=== PATIENT | male | born 1955 | race American Indian/Alaskan Native ===

== ENCOUNTER 2023-09-07 13:37 | Inpatient (IN) | payer MEDICARE, SELFPAY ==
[2023-09-07] VITALS (13 sets, daily range): BP systolic 125–151; BP diastolic 81–98; PULSE 75–92; RESP 12–24; TEMP 36.2–36.5; O2SAT 97–100; BMI 24.9
--- NOTE | 2023-09-07 | EST_ITS ---
Patient Info Name: Merritt Messina Age: 68 years : 1955 Gender: Male Ht: 68 in Wt: 164 lbs BSA: 1.90 m2 HR: 75 bpm BP: 159 / 95 mmHg Heart Rhythm: Sinus Rhythm Exam Date: 09/08/2023 11:48 AM Exam Location: Echo Lab Patient Status: Inpatient Admit Date: 09/07/2023 Staff Ordering Physician: Valdez Michel MD Attending Provider: Valdez Michel MD Exercise Technologist: Irene Newman CT Exercise Physician: Dakota Arreaga MD Exam Type: CA stress test treadmill w NM Study Info Indications R07.89 - Other chest pain A nuclear stress test was performed. Summary 1. No abnormal ST/T wave changes diagnostic of ischemia with exercise. 2. Occasional PVCs. 3. Exercise capacity fair to good at 6-10 METS. 4. Please correlate with nuclear medicine images, reported separately. 5. Stress test supervised by and interpreted by Dakota Arreaga MD. Protocol: Al Stress ECG Details Stage: REST Duration (min): 2 min : 52 sec Speed (mph): 0.0 Grade (%): 0 HR (bpm): 75 SBP (mmHg): 156 DBP (mmHg): 95 METS: --- Stage: REST Duration (min): 11 min : 10 sec Speed (mph): 0.0 Grade (%): 0 HR (bpm): 94 SBP (mmHg): 156 DBP (mmHg): 95 METS: --- Stage: STAGE 1 Duration (min): 1 min : 0 sec Speed (mph): 1.7 Grade (%): 10 HR (bpm): 110 SBP (mmHg): 156 DBP (mmHg): 95 METS: --- Stage: STAGE 1 Duration (min): 2 min : 0 sec Speed (mph): 1.7 Grade (%): 10 HR (bpm): 116 SBP (mmHg): 156 DBP (mmHg): 95 METS: --- Stage: STAGE 1 Duration (min): 3 min : 0 sec Speed (mph): 1.7 Grade (%): 10 HR (bpm): 120 SBP (mmHg): 181 DBP (mmHg): 95 METS: --- Stage: STAGE 2 Duration (min): 1 min : 0 sec Speed (mph): 2.5 Grade (%): 12 HR (bpm): 126 SBP (mmHg): 181 DBP (mmHg): 95 METS: --- Stage: STAGE 2 Duration (min): 2 min : 0 sec Speed (mph): 2.5 Grade (%): 12 HR (bpm): 134 SBP (mmHg): 149 DBP (mmHg): 90 METS: --- Stage: STAGE 2 Duration (min): 2 min : 25 sec Speed (mph): 0.0 Grade (%): 0 HR (bpm): 135 SBP (mmHg): 149 DBP (mmHg): 90 METS: --- Stage: RECOVERY Duration (min): 0 min : 34 sec Speed (mph): 0.0 Grade (%): 0 HR (bpm): 120 SBP (mmHg): 149 DBP (mmHg): 90 METS: --- Stage: RECOVERY Duration (min): 1 min : 34 sec Speed (mph): 0.0 Grade (%): 0 HR (bpm): 126 SBP (mmHg): 149 DBP (mmHg): 90 METS: --- Stage: RECOVERY Duration (min): 2 min : 34 sec Speed (mph): 0.0 Grade (%): 0 HR (bpm): 108 SBP (mmHg): 156 DBP (mmHg): 116 METS: --- Stage: RECOVERY Duration (min): 2 min : 56 sec Speed (mph): 0.0 Grade (%): 0 HR (bpm): 104 SBP (mmHg): 156 DBP (mmHg): 116 METS: --- Rest HR: 94 bpm Peak HR: 134 bpm Rest Sys BP: 156 mmHg Peak Sys BP: 181 mmHg Max Pred HR: 150 bpm % Max Pred HR: 89 % Target HR: 128 bpm Max RPP: 24,254 bpm*mmHg Davis Score: -[address] Seg Deviation: 3 mm Total Ti
--- NOTE | ~2023-09-07 | NM_ITS ---
EXAMINATION: NM stress w perf spect multi DATE: 09/08/2023 13:23 INDICATION: Acute coronary syndrome. TECHNIQUE: Rest images were obtained following intravenous administration of 10.4 mCi Tc99m tetrofosm in (CastTV). The patient performed an exercise activity. At peak exercise, 33 mCi Tc99m tetrofosmin (Myoview) was administered intravenously, and supine and prone stress images were obtained. Data was reconstructed into short axis and horizontal and vertical long axis SPECT images. Gated SPECT images were also obtained. COMPARISON: None. FINDINGS: There is a moderate-sized, mild, fixed perfusion defect involving mid to basal inferolatera l and basal inferior segments of left ventricle, consistent with infarct. No reversible component to suggest ischemia.. There is no segmental wall motion abnormality. Left ventricular ejection fractio n measures 60%. IMPRESSION: 1. Moderate-sized area of mild infarct involving mid to basal inferolateral and basal inferior segmen ts of left ventricle. 2. Normal left ventricular ejection fraction measuring 60%. Reviewed, dictated and finalized at location A. IMPRESSION: 1. Moderate-sized area of mild infarct involving mid to basal inferolateral and basal inferior segments of left ventricle. 2. Normal left ventricular ejection fraction measuring 60%.
--- NOTE | ~2023-09-07 | XR_ITS ---
EXAMINATION: XR chest 2V 09/07/2023 14:20 INDICATION: Chest tightness and weakness PROCEDURE: 2 view chest COMPARISON: No prior studies for comparison. FINDINGS: The lungs are clear. The cardiomediastinal silhouette is within normal limits. There are no pleural effusions. There is no pneumothorax suspected. There are degenerative changes of the lef t shoulder with probable chronic acromioclavicular subluxation. IMPRESSION: 1: NO ACUTE CARDIOPULMONARY DISEASE. Reviewed, dictated and finalized at location A.
[2023-09-07 14:15] LABS: Basophils Percent Auto 0.7 % (0.2-1.2); Eosinophils Absolute Auto 0.2 K/mm3 (0-0.3); Eosinophils Percent Auto 3.7 % (0-4.4); Hematocrit 44.3 % (42.0-52.0); Hemoglobin 14.6 g/dL (14.0-18.0); Immature Granulocyte Absolute 0.01 K/mm3 (0.00-0.031); Immature Granulocyte Percent A 0.2 % (0-0.5); Lymphocytes Absolute Auto 1.27 K/mm3 (0.9-3.2); Lymphocytes Percent Auto 27.8 % (18.3-44.2); Mean Corpuscular Hemoglobin 28.9 pg (26-34); Mean Corpuscular Volume 87.5 fl (80-100); Mean Platelet Volume 10.1 fl (7.4-10.4); Monocytes Absolute Auto 0.8 K/mm3 (0.1-0.6); Monocytes Percent Auto 16.6 % (2.6-8.5); Neutrophils Absolute Auto 2.3 K/mm3 (1.3-6.7); Platelet Count Result 248 k/mm3 (150-375); Red Blood Count 5.06 M/mm3 (4.6-6.20); White Blood Count 4.6 K/mm3 (4.5-10.0)
[2023-09-07 14:21] LABS: Appearance Urine Clear (Clear); Bacteria Urine None Seen /hpf; Bilirubin Urine Negative (Negative); Blood Urine Negative (Negative); Color Urine Dark Yellow (Yellow); Glucose Urine UA Negative (Negative); Ketones Urine Negative (Negative); Leukocyte Esterase Ur Negative LEU/UL (Negative); Nitrate Urine Negative (Negative); Non Pathogenic Casts 0-2; Protein Urine 1+ mg/dL (Negative); RBC Urine 0-2 /hpf (0-2); Specific Grav Ur 1.016 (1.001-1.035); Squamous Epithelial Cell Urine None Seen /hpf (Few); WBC Urine 0-5 /hpf (0-3); pH Urine 7.5 (5.0-9.0)
[2023-09-07 14:21] LABS: Alanine Aminotransferase 25 U/L (6-50); Albumin Level 4.7 g/dL (3.5-5.1); Alkaline Phosphatase 53 U/L (38-126); Anion Gap 10 mmol/L (4-12); Aspartate Amino Transferase 31 U/L (17-59); Bilirubin,Total 0.7 mg/dL (0.2-1.3); Blood Urea Nitrogen 13 mg/dL (9-20); Calcium 9.4 mg/dL (8.4-10.2); Carbon Dioxide 27 mmol/L (22-30); Chloride 103 mmol/L (98-107); Estimated CRCL calculation 54 ml/min; Estimated Glomerular Filt Rate > 60; Glucose 109 mg/dL (65-110); Potassium 3.9 mmol/L (3.4-5.0); Sodium 140 mmol/L (137-145)
[2023-09-07 14:35] LABS: Add Urine Microscopic? YES
--- NOTE | 2023-09-07 16:11 | ED.GENADULT ---
HPI - General Adult General Chief complaint: Weakness Stated complaint: weakness Time Seen by Provider: 09/07/23 14:56 History of Present Illness HPI narrative: this is a 68-year-old male presenting ED with chief complaint of chest pain shortness of breath. Over the last 2 weeks patient says he has been having intermittent chest pressure in the center of his chest radiates to both arms but more so to the left. He can last anywhere from minutes to hours before resolving. Is not associated with exertion diaphoresis vomiting. Patient did have a stent placed in 2002 in [place]. He has not followed with a community relations coordinator since then. Patient is denying fever chills productive cough abdominal pain lower extremity edema. Related Data Allergies Allergy/AdvReac Type Severity Reaction Status Date / Time No Known Allergies Allergy Verified 09/07/23 17:14 [facility] Past Medical History Medical History CAD (coronary artery disease) Diabetes HTN (hypertension) Exam Narrative: APPEARANCE: No apparent distress. Head: atraumatic. EYES: EOMI, NOSE: Atraumatic NECK: Trachea midline RESPIRATORY: No increased rate of breathing, CT be CARDIOVASCULAR: RRR, no peripheral edema ABDOMINAL: Non-distended soft nontender MUSCULOSKELETAl: No obvious deformities NEURO: Alert. Moving 4/4 extremities SKIN:: Warm, dry. Normal color PSYCHIATRIC: Normal affect Course Vital Signs Vital signs: Vital Signs Temperature 97.1 F L 09/07/23 13:41 Pulse Rate 87 09/07/23 13:41 Respiratory Rate 20 09/07/23 13:41 Blood Pressure 143/85 H 09/07/23 13:41 Pulse Oximetry 100 09/07/23 13:41 Oxygen Delivery Room Air 09/07/23 13:41 Temperature 97.1 F L 09/07/23 13:41 Pulse Rate 92 09/07/23 19:01 Respiratory Rate 20 09/07/23 19:01 Blood Pressure 136/90 09/07/23 19:01 Pulse Oximetry 100 09/07/23 19:01 Oxygen Delivery Room Air 09/07/23 13:41 Medical Decision Making [facility] Narrative Medical decision making narrative: -Course: 68-year-old history of coronary artery disease presenting with intermittent chest pain over the last 2 weeks. Troponin negative x2. EKG w/o ischemic changes. Patient will be admitted the hospital for evaluation of unstable angina. Patient started on Lovenox and given aspirin. -DDX includes but is not limited to: Unstable angina, angina, NSTEMI, chest wall pain pneumonia, pneumothorax -Co-morbidities complicating care: CAD, hypertension, diabetes, HL -Independent interpretation of studies: Troponins undetectable x2. BNP 36 CBC metabolic panel unremarkable viral swabs negative chest x-ray on Independent EKG interpretation: Rhythm [sinus], Rate [77], [place] -[normal], [place] -[normal], QRS [narrow], QTC [normal], T waves -[negative for concerning inversions], ST Segments - [Negative for concerning elevations] Final interpretations: [Normal Sinus Rhythm] -Discussion of Management/Consultants:[place] - Hospitalist -Interventions: Lovenox, aspirin -Shared decision making / Disposition: admitted. Vital Signs Vital Signs: Vital Signs Temperature 97.1 F L 09/07/23 13:41 Pulse Rate 87 09/07/23 13:41 Respiratory Rate 20 09/07/23 13:41 Blood Pressure 143/85 H 09/07/23 13:41 Pulse Oximetry 100 09/07/23 13:41 Oxygen Delivery Room Air 09/07/23 13:41 Temperature 97.1 F L 09/07/23 13:41 Pulse Rate 92 09/07/23 19:01 Respiratory Rate 20 09/07/23 19:01 Blood Pressure 136/90 09/07/23 19:01 Pulse Oximetry 100 09/07/23 19:01 Oxygen Delivery Room Air 09/07/23 13:41 Lab Data 09/07/23 13:53 09/07/23 13:55 Labs: Lab Results 09/07/23 09/07/23 09/07/23 Range/Units 13:52 13:53 13:55 WBC 4.6 (4.5-10.0) K/mm3 RBC 5.06 (4.6-6.20) M/mm3 Hgb 14.6 (14.0-18.0) g/dL Hct 44.3 (42.0-52.0) % MCV 87.5 (80-100) fl MCH 28.9 (26-34) pg MCHC 33.0 (32-36)
[2023-09-07 16:19] LABS: NT Pro B Type Natriuretic Pept 36 pg/mL (19.9-100); Troponin I < 0.012 ng/mL (0.000-0.034)
[2023-09-07] MEDS: SODIUM CHLORIDE 0.9% IV 2,500 ML 999 ML IV CONT (17:00)
[2023-09-07 17:29] LABS: Influenza A QL RT-PCR Negative (Negative); Influenza B QL RT-PCR Negative (Negative); RSV RNA, RT-PCR Negative (Negative); SARS-CoV-2 RNA PCR Negative (Negative)
[2023-09-07 18:12] LABS: Troponin I < 0.012 ng/mL (0.000-0.034)
[2023-09-07] MEDS: ASPIRIN 81 MG CHEWABLE TABLET 324 MG PO (21:11)
[2023-09-07] MEDS: ENOXAPARIN 80 MG/0.8 ML SYRINGE 75 MG SUB-Q (21:11)
--- NOTE | 2023-09-07 21:14 | PM.IMHP ---
H&P: HPI History of Present Illness Date/Time: 09/07/23 21:14 Chief Complaint: acute chest pain Narrative: patient is a 68-year-old presents mainly history of diabetes, hypertension, hyperlipidemia comes to the hospital complaining of chest pain. Patient has had history of coronary disease in 2002 where he had stent placements in [place] does follow a primary care physician here in [place]. Patient states he started having some chest pain and shortness of breath this morning has not got better after his blood work has been negative he denies any abdominal pain hematemesis hemoptysis no heartburn no history of any abdominal discomfort no history of any COPD no history of any infection in the past no history of recent travel chest pain he rates as 4/10 radiated to left shoulder the left arm. At the time of examination patient was pain-free no lower extremity edema. Had a 2D echo done but does not have the results PMFSH Past Medical History Medical History CAD (coronary artery disease) Diabetes HTN (hypertension) Meds Home Medications and Allergies Allergies Allergy/AdvReac Type Severity Reaction Status Date / Time No Known Allergies Allergy Verified 09/07/23 17:14 Vital Signs Vital Signs - 24 hr 09/07/23 13:41 09/07/23 14:59 09/07/23 15:01 Temperature 36.2 C L Pulse Rate 87 75 75 Respiratory Rate 20 24 H 16 Blood Pressure 143/85 H 146/95 H 139/87 Pulse Oximetry 100 99 100 Oxygen Delivery Room Air 09/07/23 15:16 09/07/23 16:01 09/07/23 17:14 Temperature Pulse Rate 89 77 78 Respiratory Rate 12 24 H 18 Blood Pressure 128/82 134/90 140/90 Pulse Oximetry 100 99 100 Oxygen Delivery 09/07/23 17:45 09/07/23 18:19 09/07/23 19:01 Temperature Pulse Rate 89 92 92 Respiratory Rate 20 19 20 Blood Pressure 151/97 H 150/90 H 136/90 Pulse Oximetry 100 100 100 Oxygen Delivery 09/07/23 21:07 Temperature Pulse Rate 87 Respiratory Rate 15 Blood Pressure 151/98 H Pulse Oximetry 100 Oxygen Delivery Exam Narrative: GENERAL: Well appearing, no acute distress. HEAD: Normocephalic, atraumatic. NECK: Supple. No adenopathy, no masses. RESPIRATORY: respirations nonlabored. , no rales, wheezing. CARDIOVASCULAR: Regular rate and rhythm without murmurs, . Peripheral pulses 2+ and equal bilaterally. ABDOMINAL: Soft, nontender, nondistended, no hepatosplenomegaly. Normoactive BS. MUSCULOSKELETAL: no Epigastric and no hypochondrial tenderness SKIN: Warm, dry, NEURO: A&O X3. Moves all extremities H&P: Results Labs Labs: Short CBC 09/07/23 Range/Units 13:53 WBC 4.6 (4.5-10.0) K/mm3 Hgb 14.6 (14.0-18.0) g/dL Hct 44.3 (42.0-52.0) % Plt Count 248 (150-375) k/mm3 BMP 09/07/23 13:55 Sodium 140 Potassium 3.9 Chloride 103 Carbon Dioxide 27 BUN 13 Creatinine 1.10 Glucose 109 Calcium 9.4 Cardiac Enzymes 09/07/23 09/07/23 Range/Units 13:52 16:57 Troponin I < 0.012 < 0.012 (0.000-0.034) ng/mL Liver Function 09/07/23 Range/Units 13:55 Total Bilirubin 0.7 (0.2-1.3) mg/dL AST 31 (17-59) U/L ALT 25 (6-50) U/L Alkaline Phosphatase 53 (38-126) U/L Albumin 4.7 (3.5-5.1) g/dL Urine 09/07/23 Range/Units 14:05 Urine Color Dark yellow (Yellow) Urine Appearance Clear (Clear) Urine pH 7.5 (5.0-9.0) Ur Specific [place] 1.016 (1.001-1.035) Urine Protein 1+ H (Negative) mg/dL Urine Glucose (UA) Negative (Negative) mg/dL Assessment and Plan Assessment and plan (1) Chest pain: Code(s): R07.9 - Chest pain, unspecified Status: Acute (2) Diabetes: Code(s): E11.9 - Type 2 diabetes mellitus without complications Status: Acute (3) HTN (hypertension): Code(s): I10 - Essential (primary) hypertension Status: Acute (4) CAD (coronary artery disease): Code(s): I25.10 - Atheroscleroti
--- NOTE | 2023-09-07 21:38 | ADMGEN ---
This patient, Merritt Messina, was admitted to 2 Medical Room 243-01. Patient/family oriented to hospital policies and general routines including ID bracelet, bed and alarms, visiting hours, pain management, procedures, bathroom and other care routines, personal items, smoking policy, room service/diet, and visiting hours. Information on how to activate the Rapid Response Team has been discussed. Patient/Family are encouraged to report perceived risks to care and to ask questions if they do not understand what they are told or what they should do. Report received from RODY Moura in ED.
[2023-09-07 22:17] LABS: Cholesterol 195 mg/dL (0-200); HDL Direct 57 mg/dL; Triglycerides 201 mg/dL (<150)
[2023-09-07 22:18] LABS: Alanine Aminotransferase 25 U/L (6-50); Albumin Level 4.7 g/dL (3.5-5.1); Alkaline Phosphatase 55 U/L (38-126); Anion Gap 9 mmol/L (4-12); Aspartate Amino Transferase 33 U/L (17-59); Bilirubin,Total 0.6 mg/dL (0.2-1.3); Blood Urea Nitrogen 10 mg/dL (9-20); Carbon Dioxide 24 mmol/L (22-30); Chloride 107 mmol/L (98-107); Estimated CRCL calculation 65 ml/min; Estimated Glomerular Filt Rate > 60; Glucose 139 mg/dL (65-110); Potassium 3.3 mmol/L (3.4-5.0); Sodium 140 mmol/L (137-145)
[2023-09-07 22:21] LABS: Hemoglobin A1C 6.4 % (<5.7)
[2023-09-07 22:24] LABS: Basophils Percent Auto 0.6 % (0.2-1.2); Eosinophils Absolute Auto 0.2 K/mm3 (0-0.3); Eosinophils Percent Auto 3.4 % (0-4.4); Hematocrit 45.1 % (42.0-52.0); Hemoglobin 15.1 g/dL (14.0-18.0); Immature Granulocyte Absolute 0.01 K/mm3 (0.00-0.031); Immature Granulocyte Percent A 0.2 % (0-0.5); Lymphocytes Absolute Auto 1.27 K/mm3 (0.9-3.2); Lymphocytes Percent Auto 26.9 % (18.3-44.2); Mean Corpuscular HGB Conc 33.5 g/dl (32-36); Mean Corpuscular Hemoglobin 29.3 pg (26-34); Mean Corpuscular Volume 87.4 fl (80-100); Mean Platelet Volume 10.2 fl (7.4-10.4); Monocytes Absolute Auto 0.6 K/mm3 (0.1-0.6); Monocytes Percent Auto 12.3 % (2.6-8.5); Neutrophils Absolute Auto 2.7 K/mm3 (1.3-6.7); Neutrophils Percent Auto 56.6 % (45.5-73.1); Platelet Count Result 261 k/mm3 (150-375); Red Blood Count 5.16 M/mm3 (4.6-6.20); Red Cell Distribution Width 14.1 % (11.5-14.5); White Blood Count 4.7 K/mm3 (4.5-10.0)
[2023-09-07 22:27] LABS: LDL Cholesterol Direct 117 mg/dL
[2023-09-07 22:29] LABS: Troponin I < 0.012 ng/mL (0.000-0.034)
[2023-09-08] VITALS: PULSE 81
--- NOTE | 2023-09-08 | ECG_ITS ---
SEE SCANNED COPY FOR CONFIRMED REPORT MTDD
[2023-09-08 04:00] VITALS: BP 140/89; PULSE 77; PULSE 79; RESP 18; TEMP 36.6; O2SAT 98
[2023-09-08 07:10] VITALS: BP 152/94; PULSE 78; RESP 24; TEMP 36.8; O2SAT 98
--- NOTE | 2023-09-08 07:42 | PM.IMPN ---
Progress Note: A&P Assessment and Plan (1) Chest pain: Code(s): R07.9 - Chest pain, unspecified Status: Acute Assessment and Plan: -patient's symptoms are typical chest pain with worse on exertion, concerning for ACS - normal troponins -EKG without any acute findings -cardiology consulted a nuclear stress test completed today, 09/07 -prn Nitroglycerin, oxygen, morphine, aspirin -checking lipid panel and hemoglobin A1c -IV fluids: Continue maintenance normal saline for now (2) Diabetes: Code(s): E11.9 - Type 2 diabetes mellitus without complications Status: Acute Assessment and Plan: HBA1c ( goal <7.0%) , Renal functions, Liver panel every 3 months Optimize TRACY-inhibitor and statin - continue sliding scale insulin patient currently on metformin 500 mg twice daily Routine glucose monitoring Watch for Hypoglycemia- hypoglycemia protocol BMI goal < 25 Yearly eye exam and foot exam Yearly check for urine microalbuminuria 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-up with PCP and electrical engineering teacher (3) HTN (hypertension): Code(s): I10 - Essential (primary) hypertension Status: Acute Assessment and Plan: resume amlodipine-benazepril (4) CAD (coronary artery disease): Code(s): I25.10 - Atherosclerotic heart disease of [place] coronary artery without angina pectoris Status: Acute Assessment and Plan: resume home meds- statin, asa Plan DVT LOVENOX PERIPHERAL IV FULL CODE Time Spent With Patient Time with patient: 15 - 25 minutes Subjective Date/time seen: 09/08/23 07:42 Interval history: 68-year-old, history of diabetes, hypertension, hyperlipidemia comes to the hospital complaining of chest pain.? Patient has had history of coronary disease in 2003 where he had stent placements in [place] does follow a primary care physician here in [place].? Patient states he started having some chest pain and shortness of breath yesterday morning has not got better. He denies any abdominal pain hematemesis hemoptysis no heartburn no history of any abdominal discomfort no history of any COPD no history of any infection in the past no history of recent travel chest pain he rated as 4/10 radiated to left shoulder the left arm.? 09/07- pt is seen and examined today- he just came back from getting a Stress test. Eating lunch now- denies chest pain, SOB. Wants to establish with DR Dakota Arreaga upon discharge Review of Systems Constitutional: Constitutional: Denies body ache(s) and Denies chills Eyes: Eyes: Denies blurry vision ENT: Reports Normal hearing present Cardiovascular: Cardiovascular: Denies chest pain, Denies diaphoresis, Denies pedal edema and Denies leg edema Respiratory: Respiratory: Denies chest congestion and Denies cough Gastrointestinal: Gastrointestinal: Denies abdominal pain, Denies melena, Denies constipation and Denies heartburn Genitourinary: Genitourinary: Denies hematuria and Denies dysuria Musculoskeletal: Musculoskeletal: Denies back pain Psychiatric: Psychiatric: Denies anxiety Exam Narrative: GENERAL: Well appearing, no acute distress. HEAD: Normocephalic, atraumatic. NECK: Supple. No adenopathy, no masses. RESPIRATORY: respirations nonlabored. , no rales, wheezing. CARDIOVASCULAR: Regular rate and rhythm without murmurs, Peripheral pulses 2+ and equal bilaterally. ABDOMINAL: Soft, nontender, nondistended, no hepatosplenomegaly. Normoactive BS. MUSCULOSKELETAL: no Epigastric and no hypochondrial tenderness SKIN: Warm, dry, NEURO: A&O X3. Moves all extremities Const: General: comfortable Resp: Other: faint wheezes noted to rt side Cardio: Rate: not bradycardic and not tachycardic Skin: General skin exam: rashes and/or lesions noted Neuro: General: deep tendon reflexes 2+ bilaterally Speech: normal speech Extrem: General: normal exam except as noted Psych: Affect: normal affect Objective Data Vital Signs Jaimee
[2023-09-08 07:45] LABS: Glucose Point of Care 138 mg/dl (65-105)
[2023-09-08 08:00] VITALS: PULSE 71; O2SAT 96
[2023-09-08 08:20] VITALS: BP 146/85; PULSE 69; RESP 24; TEMP 36.6; O2SAT 99
[2023-09-08] MEDS: ENOXAPARIN 80 MG/0.8 ML SYRINGE 75 MG SUB-Q (09:50)
[2023-09-08] MEDS: ATORVASTATIN 40 MG TABLET PO (09:50)
[2023-09-08] MEDS: ASPIRIN 81 MG CHEWABLE TABLET PO (09:50)
[2023-09-08] MEDS: PANTOPRAZOLE 40 MG TABLET PO (10:15)
--- NOTE | 2023-09-08 11:11 | PC.NURSE ---
To nuclear med per wheelchair
--- NOTE | 2023-09-08 12:12 | PM.CNCAR ---
Assessment and Plan Assessment and plan (1) Chest pain: Code(s): R07.9 - Chest pain, unspecified Status: Acute Assessment and Plan: Troponins are negative. EKG without ischemic changes. Treadmill nuclear stress test ordered by Hospitalist. Agree with stress testing. Further recommendations and plan pending results of stress test. (2) CAD (coronary artery disease): Code(s): I25.10 - Atherosclerotic heart disease of [place] coronary artery without angina pectoris Status: Acute Assessment and Plan: Continue ASA, statin. On Rosuvastatin 5mg at home, will increase to 40mg for high intensity dose. (3) HTN (hypertension): Code(s): I10 - Essential (primary) hypertension Status: Acute Assessment and Plan: Stable. Continue home Amlodipine-Benazepril. (4) Diabetes: Code(s): E11.9 - Type 2 diabetes mellitus without complications Status: Acute Assessment and Plan: Hgb A1c is 6.4. Management as per primary team. (5) Hyperlipidemia: Code(s): E78.5 - Hyperlipidemia, unspecified Status: Acute Assessment and Plan: LDL is 117. On Rosuvastatin 5mg at home, will increase to 40mg for high intensity dose. History of Present Illness History of Present Illness Consult date/time: 09/08/23 12:12 Requesting physician: Ketan Tiwari MD Consult reason: chest pain Reason For Visit: Chest pain Narrative: We are consulted for chest pain. This is a 68 year old male with coronary artery disease s/p stent in 2002 in [facility], hypertension, hyperlipidemia, type 2 diabetes mellitus who presented with chest pain. Has been having substernal chest pain with radiation to the arms that occurs for a few seconds to a few minutes. Occurs randomly, not associated with activity, and has occurred at rest. Currently chest pain free. Troponins are negative x 3. CXR negative. EKG with sinus rhythm with nonspecific STTW abnormality. No prior EKG available for comparison. Does not have an outpatient [facility]. Former smoker - quit in the 80s. Review of Systems Review of Systems: All systems reviewed & are unremarkable except as noted in HPI and below (HPI) [facility] Past Medical History Medical History CAD (coronary artery disease) Diabetes HTN (hypertension) Family History Family History Sibling Heart disease Mother Heart disease Social History Social History Smoking status: Former smoker Tobacco type: cigarettes Alcohol intake: current Drinks per week: 14 Substance use: never Substance use type: does not use Do You Feel Safe in your Home?: Yes Lack of Transportation: No Lack of Food: Never True Current Housing: I Have Housing Concerned About Future Housing: No Difficulty Paying Gas/Electric Bills: No Difficulty Paying for Meds: No Currently Unemployed: No Education: Master's Degree or Higher Difficulty w/ Childcare or Family Care: No Spiritual care concerns: No Meds Home Medications and Allergies Home Medications Medication Instructions Recorded Confirmed Type amlodipine 10 mg-benazepril 20 mg 1 cap PO DAILY 09/07/23 09/07/23 History capsule aspirin 81 mg chewable tablet 81 mg PO DAILY 09/07/23 09/07/23 History ergocalciferol (vitamin D2) 1,250 1,250 mcg PO WEEKLY 09/07/23 09/07/23 History mcg (50,000 unit) capsule metformin 500 mg tablet 500 mg PO BID 09/07/23 09/07/23 History rosuvastatin 5 mg tablet 5 mg PO DAILY 09/07/23 09/07/23 History Allergies Allergy/AdvReac Type Severity Reaction Status Date / Time No Known Allergies Allergy Verified 09/07/23 17:14 Vital Signs Vital Signs - 24 hr 09/07/23 13:41 09/07/23 14:59 09/07/23 15:01 Temperature 36.2 C L Pulse Rate 87 75 75 Respiratory Rate 20 24 H 16 Blood Pressure 143/85 H 146/95 H
--- NOTE | 2023-09-08 12:46 | PC.NURSE ---
Return from Radiology per wheelchair
[2023-09-08 12:53] VITALS: BP 134/84; PULSE 80
[2023-09-08] MEDS: amLODIPine BESYLATE 5 MG TABLET 10 MG PO (12:54)
[2023-09-08] MEDS: lisinopriL 20 MG TABLET PO (12:54)
[2023-09-08 13:20] LABS: Glucose Point of Care 137 mg/dl (65-105)
--- NOTE | 2023-09-08 14:17 | PM.DS ---
DS: Admitting Diagnosis Discharge Date 09/07 Admitting Diagnosis chets pain DS: Discharge Diagnosis Discharge Diagnosis (1) Chest pain: Code(s): R07.9 - Chest pain, unspecified Status: Acute Assessment and Plan: -patient's symptoms are typical chest pain with worse on exertion, concerning for ACS - normal troponins -EKG without any acute findings -cardiology consulted a nuclear stress test completed today, 09/07 -prn Nitroglycerin, oxygen, morphine, aspirin -checking lipid panel and hemoglobin A1c (2) Diabetes: Code(s): E11.9 - Type 2 diabetes mellitus without complications Status: Acute Assessment and Plan: HBA1c ( goal <7.0%) , Renal functions, Liver panel every 3 months Optimize TRACY-inhibitor and statin - continue sliding scale insulin patient currently on metformin 500 mg twice daily Routine glucose monitoring Watch for Hypoglycemia- hypoglycemia protocol BMI goal < 25 Yearly eye exam and foot exam Yearly check for urine microalbuminuria 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-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 Has been having substernal chest pain with radiation to the arms that occurs for a few seconds to a few minutes. Occurs randomly, not associated with activity, and has occurred at rest. Currently chest pain free. Troponins are negative x 3. CXR negative. EKG completed. No prior EKG available for comparison. 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 Former smoker - quit in the 80s. MPI shows moderate-sized area of mild infarct involving the mid-basal inferolateral and basal inferior segments. No reversible component to suggest ischemia. No segmental wall motion abnormality. LVEF normal at 60%. Discussed results with the patient and options of cardiac catheterization vs medical management. Patient prefers medical management for now and would like to defer cath for now. Will start Imdur 60mg once daily. PRN SL NTG. Continue Amlodipine. Will arrange close follow up in the office with us. Discussed return precautions with the patient. Status at Discharge Functional status at discharge: independent ambulation Overall status at discharge: patient is back to baseline Time Spent with Patient Time attestation: Total time spent providing and/or coordinating discharge services: Time spent: Less than 30 minutes Exam Narrative: GENERAL: Well appearing, no acute distress. HEAD: Normocephalic, atraumatic. NECK: Supple. No adenopathy, no masses. RESPIRATORY: respirations nonlabored. , no rales, wheezing. CARDIOVASCULAR: Regular rate and rhythm without murmurs, Peripheral pulses 2+ and equal bilaterally. ABDOMINAL: Soft, nontender, nondistended, no hepatosplenomegaly. Normoactive BS. MUSCULOSKELETAL: no Epigastric and no hypochondrial tenderness SKIN: Warm, dry, NEURO: A&O X3. Moves all extremities Const: General: comfortable Resp: Other: faint wheezes noted to rt side Cardio: Rate: not bradycardic and not tachycardic Skin: General skin exam: rashes and/or lesions noted Neuro: General: deep tendon reflexes 2+ bilaterally Cranial nerves: Yes Normal hearing present Speech: normal speech Extrem: General: normal exam except as noted Psych: Affect: normal affect DS: Data Data Completed and Pending Completed studies during hospitalization: stress te
[2023-09-08] MEDS: ISOSORBIDE MONONITRATE 60 MG TAB.ER.24H PO (14:48)
[2023-09-08] MEDS: POTASSIUM CHLORIDE 20 MEQ PACKET (FOR LIQUID) PO (14:48)
== END 2023-09-08 15:32 | disposition home or self-care (01) | DRG 303 ==
LOC: ANHED 20:26 → ANH2MED 21:04
PROVIDERS: Admitting Provider Internal Medicine; Emergency Provider Emergency Medicine; PCP Family Medicine; Visit Provider Nurse Practitioner
DX: I25.10 Atherosclerotic heart disease of native coronary artery without angina pectoris (principal); I5A Non-ischemic myocardial injury (non-traumatic); E11.9 Type 2 diabetes mellitus without complications; I10 Essential (primary) hypertension; E78.5 Hyperlipidemia, unspecified; Z20.822 Contact with and (suspected) exposure to COVID-19; Z95.5 Presence of coronary angioplasty implant and graft
CPT/HCPCS: 36415; 71046; 78452; 80053; 80061; 81001; 82948; 83036; 83880; 84484; 85025; 87040; 87637; 93005; 93017; A9270; A9502; J1650; J7030